=== PATIENT | male | born 1965 | race Caucasian/White ===

== ENCOUNTER 2017-11-24 19:48 | Emergency (ER) | payer BC ==
[2017-11-24 20:15] VITALS: BP 159/106; PULSE 91; RESP 22; TEMP 98.3
[2017-11-24] MEDS ORDERED: ORPHENADRINE 30 MG/ML 2 ML VIAL IM STA (20:35)
[2017-11-24] MEDS ORDERED: KETOROLAC 30 MG/ML 1 ML VIAL IM STA (20:35)
--- NOTE | 2017-11-24 20:52 | ED ---
Back Pain HPI - General Chief Complaint: Back Pain/Injury Stated Complaint: back pain Time Seen by Provider: 11/24/17 20:20 Source: patient, RN notes reviewed Mode of arrival: ambulatory Limitations: no limitations - History of Present Illness Initial Comments: This is a 52-year-old male who presents to the emergency department with chief complaint of back pain. Patient reports history of chronic back pain. He states that every 6 months he gets an ablation for a herniated disc that causes radiculopathy on the right side. Patient states that the past 3 ablations have been canceled. He states that over the past 2 weeks he's had worsening of left- sided back pain and is now experiencing tingling to the left thigh. Patient states that he takes Percocet and oxycodone at home. He states it has not been fully relieving the pain. He states that he does have an ablation scheduled for next Tuesday. Patient denies any saddle paresthesias or loss of bladder or bowel function. Denies IV drug use. Denies falls, injuries or trauma. Denies recent fevers or chills, chest pain or shortness of breath, abdominal pain, nausea or vomiting. - Related Data Previous Rx's Medication Instructions Recorded Cyclobenzaprine [Flexeril] 10 mg PO TID #15 tab 11/24/17 Allergies Allergy/AdvReac Type Severity Reaction Status Date / Time cephalexin [From Keflex] Allergy Anaphylaxis Verified 11/24/17 20:15 codeine Allergy Nausea & Verified 11/24/17 20:15 Vomiting phenytoin [From Dilantin] Allergy Hallucinati Verified 11/24/17 20:15 ons Review of Systems ROS Statement: Those systems with pertinent positive or pertinent negative responses have been documented in the HPI. ROS Other: All systems not noted in ROS Statement are negative. Past Medical History Past Medical History: Diabetes Mellitus, Hypertension Additional Past Medical History / Comment(s): back pain History of Any Multi-Drug Resistant Organisms: None Reported Past Surgical History: Hernia Repair Additional Past Surgical History / Comment(s): 2-fatty tissue tumors, cyst throat , vastectomy Past Psychological History: No Psychological Hx Reported Smoking Status: Never smoker Past Alcohol Use History: Rare Past Drug Use History: None Reported General Exam - General Exam Comments Initial Comments: General: Awake and alert, well-developed; in no apparent distress. Pleasant male lying comfortably on ED stretcher on his right side. HEENT: Head atraumatic, normocephalic. Pupils are equal, round and reactive to light. Extraocular movements intact. Oropharynx moist without erythema or exudate. Neck: Supple. Normal ROM. Cardiovascular: Regular rate and rhythm. No murmurs, rubs or gallops. Chest symmetrical. Pedal pulses are 2+ equal and palpable bilaterally. Respiratory: Lungs clear to auscultation bilaterally. No wheezes, rales or rhonchi. Normal respiratory effort with no use of accessory muscles. Musculoskeletal: Normal ROM, no tenderness bilateral upper and lower extremities. Skin: [place], warm and dry without rashes or lesions. Neurological: Alert and oriented x3. CN II-XII grossly intact. Speech is fluent and answers are appropriate. No focal neuro deficits. Psychiatric: Normal mood and affect. No overt signs of depression or anxiety noted. Limitations: no limitations Back exam: Present: normal inspection, full ROM, paraspinal tenderness (right and left lumbar). Absent: vertebral tenderness Course Vital Signs 11/24/17 20:10 Temperature 98.3 F Pulse Rate 91 Respiratory 22 Rate Blood Pressure 159/106 O2 Sat by Pulse 96 Oximetry Medical Decision Making - Medical Decision Making This is a 52-year-old male who presents to the emergency department with chief complaint of acute on chronic low back pain. Patient denies any falls, injuries or trauma. He is neurovascularly intact. There is tenderness on palpation of the left paraspinal muscles. Patient reports tingling to the left thigh. Denies saddle paresthesias or loss of bladder or bowel function. Patient takes Percocet and oxycodone at home. Recommended a short course of steroids, however patient declines. He will be given muscle relaxers. Also recommended ibuprofen 600 mg every 6 hours for the next 2-3 days. Given Toradol and Norflex while in the emergency department. His vital signs are stable and he is in no acute distress. He will be discharged home at this time. He is in agreement with plan and voices understanding. All questions were answered. Instructed patient to follow up with his upcoming ablation as scheduled. Disposition Clinical Impression: Acute low back pain, Lumbar radiculopathy Disposition: HOME SELF-CARE Condition: Good Instructions: Acute Low Back Pain (ED) Additional Instructions: May take ibuprofen 600 mg every 6 hours for the next 2-3 days. Please take medications as prescribed Please follow up with primary care provider within 1- 2 days. Return to emergency department if symptoms should worsen or any concerns arise. Prescriptions: Cyclobenzaprine [Flexeril] 10 mg PO TID #15 tab Is patient prescribed a controlled substance at d/c from ED?: No Referrals: None,Stated [Primary Care Provider] - 1-2 days Time of Disposition: 20:52
== END 2017-11-24 21:00 | disposition home or self-care (01) ==
LOC: EC 19:48
DX: M54.16 Radiculopathy, lumbar region (principal); Z88.1 Allergy status to other antibiotic agents; Z88.5 Allergy status to narcotic agent; Z88.8 Allergy status to other drugs, medicaments and biological substances; Z98.890 Other specified postprocedural states
CPT/HCPCS: 99283; 96372 ×2; J2360; J1885

== ENCOUNTER 2017-12-05 09:15 | Emergency (ER) | payer BC ==
[2017-12-05] MEDS ORDERED: HYDROmorphone 1 MG/ML 1 ML SYRINGE IM STA (09:51)
--- NOTE | 2017-12-05 09:54 | ED ---
Back Pain HPI - General Chief Complaint: Back Pain/Injury Stated Complaint: back pain Time Seen by Provider: 12/05/17 09:27 Source: patient, RN notes reviewed Limitations: no limitations - History of Present Illness Initial Comments: 52-year-old male presents emergency Department chief complaint of low back pain. Patient does admit that he is chronic back issues with lumbar area Symptoms on his right. Patient states over the last week or so he's had left leg symptoms. He states she's never had these issues in the past. Patient went for an ablation to his right side and states that his neck and told he needed some sort of imaging. Patient states he is not did not have any imaging. Patient denies any bowel bladder incontinence or retention. Denies any saddle anesthesias. Patient denies any abdominal pain. Patient states his pain and numbness rating down his left leg. Patient does take Percocet currently. - Related Data Home Medications Medication Instructions Recorded Confirmed Hydrochlorothiazide 25 mg PO DAILY 12/05/17 12/05/17 Lisinopril [Prinivil] 20 mg PO DAILY 12/05/17 12/05/17 Multivitamin [Men's Multi-Vitamin] 1 tab PO DAILY 12/05/17 12/05/17 oxyCODONE HCL/ACETAMINOPHEN 1 tab PO TID PRN 12/05/17 12/05/17 [Percocet 10-325 mg] Previous Rx's Medication Instructions Recorded predniSONE 50 mg PO DAILY #5 tab 12/05/17 Allergies Allergy/AdvReac Type Severity Reaction Status Date / Time cephalexin [From Keflex] Allergy Anaphylaxis Verified 12/05/17 09:59 codeine Allergy Nausea & Verified 12/05/17 09:59 Vomiting phenytoin [From Dilantin] Allergy Hallucinati Verified 12/05/17 09:59 ons Review of Systems ROS Statement: Those systems with pertinent positive or pertinent negative responses have been documented in the HPI. ROS Other: All systems not noted in ROS Statement are negative. Past Medical History Past Medical History: Diabetes Mellitus, Hypertension Additional Past Medical History / Comment(s): chronic back pain History of Any Multi-Drug Resistant Organisms: None Reported Past Surgical History: Hernia Repair Additional Past Surgical History / Comment(s): 2-fatty tissue tumors, cyst throat , vastectomy Past Psychological History: No Psychological Hx Reported Smoking Status: Never smoker Past Alcohol Use History: Rare Past Drug Use History: None Reported General Exam Limitations: no limitations General appearance: alert, in no apparent distress Head exam: Present: atraumatic, normocephalic, normal inspection Respiratory exam: Present: normal lung sounds bilaterally. Absent: respiratory distress, wheezes, rales, rhonchi, stridor Cardiovascular Exam: Present: regular rate, normal rhythm, normal heart sounds. Absent: systolic murmur, diastolic murmur, rubs, gallop, clicks GI/Abdominal exam: Present: soft, normal bowel sounds. Absent: distended, tenderness, guarding, rebound, rigid Extremities exam: Present: other (Bilateral lower extremity full range of motion neurovascular intact equal color equal warmth) Back exam: Present: normal inspection, full ROM (Pain with range of motion), tenderness (Mild left lower lumbar), paraspinal tenderness. Absent: vertebral tenderness Neurological exam: Present: reflexes normal. Absent: motor sensory deficit Skin exam: Present: warm, dry, intact, normal color. Absent: rash Course Vital Signs 12/05/17 09:21 Temperature 98.1 F Pulse Rate 88 Respiratory 20 Rate Blood Pressure 121/78 O2 Sat by Pulse 98 Oximetry Medical Decision Making - Medical Decision Making 52-year-old male presents emergency from for low back pain. Patient is lumbar radiculopathy secondary to disc herniation. Patient will be referred to Dr. Nolan. Return parameters discussed. Disposition Clinical Impression: Lumbar radiculopathy, Acute low back pain Disposition: TRANSFER TO PSYCH HOSP/UNIT Condition: Stable Instructions: Acute Low Back Pain (ED) Additional Instructions: Please return to the Emergency Department if symptoms worsen or any other concerns. Prescriptions: predniSONE 50 mg PO DAILY #5 tab Is patient prescribed a controlled substance at d/c from ED?: No Referrals: None,Stated [Primary Care Provider] - 1-2 days Juan Jose Coronado DO [Doctor of Osteopathic Medicine] - 1-2 days Alphonso Cohen MD [STAFF PHYSICIAN] - 1-2 days Time of Disposition: 11:06
--- NOTE | 2017-12-05 10:26 | CT ---
EXAMINATION TYPE: CT lumbar spine wo con DATE OF EXAM: 12/05/2017 10:19 AM COMPARISON: None HISTORY: Low back pain CT DLP: 1190 mGycm Automated exposure control for dose reduction was used. Unenhanced CT of the lumbar spine was performed. Bone and soft tissue window settings are submitted as well as coronal and sagittal reconstructions. Evaluation slightly suboptimal study due to patient' s large body habitus. 5 lumbar type vertebra identified. Lumbar spine shows satisfactory alignment without evidence of acut e fracture or dislocation. Vertebral body heights and disc space heights are fairly well-maintained. There are posterior spur disc complexes identified L4-L5 and L5-S1 level on sagittal images. Smaller posterior disc herniation is seen L3-L4 level on sagittal images. Review of axial images shows the T12-L1, L1-L2, and L2-L3 levels all to appear within normal limits. Axial images at the L3-L4 level show mild/moderate broad disc bulge mildly effacing anterior thecal s ac on axial image 47. Bilateral neural foramina are patent. Axial images at the L4-L5 level show broad disc bulge with prominent right paracentral calcified disc protrusion component effacing anterior thecal sac on axial image 58 and causing mild to moderate ori ateral neural foraminal narrowing. Axial images at L5-S1 level show mild facet degenerative changes bilaterally. There is central spur d isc complex but spinal canal is preserved. Bilateral neural foramina are patent. There is mild calcified plaque in visualized portion of common iliac arteries IMPRESSION: Multilevel degenerative changes most prominent L4-L5 level as detailed above.
[2017-12-05 11:10] VITALS: BP 136/96; PULSE 77; RESP 18; TEMP 97.8
== END 2017-12-05 11:18 | disposition home or self-care (01) ==
LOC: EC 09:15
DX: M51.16 Intervertebral disc disorders with radiculopathy, lumbar region (principal); I10 Essential (primary) hypertension; Z79.899 Other long term (current) drug therapy; Z88.1 Allergy status to other antibiotic agents; Z88.5 Allergy status to narcotic agent; Z88.8 Allergy status to other drugs, medicaments and biological substances
CPT/HCPCS: 99283; 96372; 72131; J1170

== ENCOUNTER 2021-09-04 08:52 | Day surgery (SDC) | payer OTHER ==
[2021-09-01 15:44] VITALS: BMI 37.3
[~2021-09-04 08:52] MED LIST: LACTATED RINGERS 1,000 ML IV SCH
[2021-09-04 09:13] VITALS: TEMP 97
[2021-09-04 09:29] LABS: Glucose,Whole Blood 152 mg/dL (70-110)
[2021-09-04] MEDS ORDERED: PROPOFOL 10 MG/ML 20 ML VIAL IV ONE (10:26)
--- NOTE | 2021-09-04 10:56 | P.PCN ---
Date of Procedure: 09/04/21 Procedure(s) Performed: BRIEF HISTORY: Patient is a 56-year-old pleasant white male scheduled for an elective colonoscopy as a part of evaluation of prior history of colon polyps. His last coloscopy was 6 years ago. PROCEDURE PERFORMED: Colonoscopy. PREOPERATIVE DIAGNOSIS: history of colon polyps. IV sedation per Anesthesia. PROCEDURE: After informed consent was obtained, the patient, was brought into the endoscopy unit. IV sedation was administered by Anesthesia under continuous monitoring. Digital rectal examination was normal. Initially the Olympus CF-160 flexible video colonoscope was then inserted in the rectum, gradually advanced into the cecum without any difficulty. Careful examination was performed as the scope was gradually being withdrawn. Ileocecal valve and the appendiceal orifice were visualized and appeared normal. Prep was excellent. Mucosa of the cecum, ascending colon, transverse colon, descending colon, sigmoid colon, and rectum appeared normal. Retroflexion was performed in the rectum and no lesions were seen. The patient tolerated the procedure well. IMPRESSION: Normal-appearing colon from rectum to cecum with no evidence of colorectal neoplasia. RECOMMENDATIONS: Findings of this examination were discussed with the patient .as well as his family. He was advised to have a repeat screening colonoscopy in 10 years.
[2021-09-04 11:30] VITALS: BP 114/69; PULSE 54; RESP 16
== END 2021-09-04 11:45 | disposition home or self-care (01) ==
LOC: ORWHC2ENDO 08:52
PROVIDERS: ATTEND Internal Medicine Gastroenterology
DX: Z12.11 Encounter for screening for malignant neoplasm of colon (principal); Z86.010 Personal history of colon polyps; I10 Essential (primary) hypertension; E11.9 Type 2 diabetes mellitus without complications; Z79.899 Other long term (current) drug therapy; Z88.3 Allergy status to other anti-infective agents; Z88.5 Allergy status to narcotic agent; Z88.8 Allergy status to other drugs, medicaments and biological substances; Z79.891 Long term (current) use of opiate analgesic; Z80.9 Family history of malignant neoplasm, unspecified
CPT/HCPCS: 45378; J2704

== ENCOUNTER 2022-01-14 17:28 | Emergency (ER) | payer OTHER ==
[2022-01-14 17:34] VITALS: BP 148/77; PULSE 77; RESP 16; TEMP 98.5
[2022-01-14] MEDS ORDERED: BACITRACIN OINT 1 EACH PACKET TOPICAL ONE (18:06)
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
== END 2022-01-14 18:45 | disposition home or self-care (01) ==
LOC: EC 17:28
DX: T25.222A Burn of second degree of left foot, initial encounter (principal); T31.0 Burns involving less than 10% of body surface; I10 Essential (primary) hypertension; Z88.1 Allergy status to other antibiotic agents; Z88.8 Allergy status to other drugs, medicaments and biological substances; X12.XXXA Contact with other hot fluids, initial encounter; Y92.89 Other specified places as the place of occurrence of the external cause
CPT/HCPCS: 99283

== ENCOUNTER 2022-08-31 18:43 | Emergency (ER) | payer BC, OTHER ==
[2022-08-31 19:29] VITALS: RESP 18
--- NOTE | 2022-08-31 19:57 | ED ---
Abdominal Pain HPI - General Chief Complaint: Abdominal Pain Stated Complaint: abd pain Time Seen by Provider: 08/31/22 19:55 Source: patient, RN notes reviewed Mode of arrival: ambulatory Limitations: no limitations - History of Present Illness Initial Comments: This is a 57-year-old male who presents to the emergency department for left upper quadrant pain and constipation. States that he takes narcotic pain medication daily due to chronic back pain and neuropathy. He usually takes this with Dulcolax or another stool softener. However, over the last 3 days, he has not had a bowel movement. He is still passing gas. He tried taking Dulcolax, Will aLAX, and Senokot with no relief. He feels like he is having increasing pain in his upper abdomen, as well as the left upper quadrant. The left upper quadrant pain feels similar to a prior rib fracture, however he is unsure how he would have caused a rib fracture. Reports associated nausea. Denies any history of bowel obstructions. Denies any fevers, chills, sore throat, cough, dyspnea, chest pain, palpitations, vomiting, diarrhea, back pain, or headaches. MD Complaint: abdominal pain - Related Data Home Medications Medication Instructions Recorded Confirmed Multivitamin [Men's Multi-Vitamin] 1 tab PO DAILY 12/05/17 09/04/21 hydroCHLOROthiazide 25 mg PO DAILY 12/05/17 09/04/21 lisinopriL [Prinivil] 20 mg PO DAILY 12/05/17 09/04/21 Cetirizine HCl [Zyrtec] 10 mg PO DAILY 09/01/21 09/04/21 Gabapentin [Neurontin] 800 mg PO TID 09/01/21 09/04/21 oxyCODONE-APAP 10-325MG [Percocet 1 tab PO BID-W/MEALS 09/01/21 09/04/21 10-325 mg] Previous Rx's Medication Instructions Recorded Bacitracin Zinc/Polymyxin B 1 applic TOPICAL Q4H #50 gm 01/14/22 [Bacitracin-Polymyxin Ointment] Ondansetron Odt [Zofran Odt] 4 mg PO Q8HR PRN #15 tab 09/01/22 Allergies Allergy/AdvReac Type Severity Reaction Status Date / Time cephalexin [From Keflex] Allergy Anaphylaxis Verified 08/31/22 19:29 codeine Allergy Nausea & Verified 08/31/22 19:29 Vomiting phenytoin [From Dilantin] Allergy Hallucinations Verified 08/31/22 19:29 , HAD ALLERGY A CHILD UNSURE OF SYMPTOMS Review of Systems ROS Statement: Those systems with pertinent positive or pertinent negative responses have been documented in the HPI. ROS Other: All systems not noted in ROS Statement are negative. Past Medical History Past Medical History: Hypertension Additional Past Medical History / Comment(s): chronic back pain, neuropathy History of Any Multi-Drug Resistant Organisms: None Reported Past Surgical History: Hernia Repair Additional Past Surgical History / Comment(s): 2-fatty tissue tumors, cyst throat , vastectomy Past Psychological History: No Psychological Hx Reported Smoking Status: Never smoker Past Alcohol Use History: Rare Past Drug Use History: Marijuana General Exam - General Exam Comments Initial Comments: Visual Physical Exam Vital signs reviewed General: Well-appearing, nontoxic, no acute distress. Head: Normocephalic, atraumatic Eyes: PERRLA, EOMI ENT: Airway patent Chest: Nonlabored breathing Skin: No visual rash, normal skin tone Neuro: Alert and oriented 3 Musculoskeletal: No gross abnormalities Limitations: no limitations General appearance: alert, in no apparent distress Head exam: Present: atraumatic, normocephalic, normal inspection Respiratory exam: Present: normal lung sounds bilaterally. Absent: respiratory distress, wheezes, rales, rhonchi, stridor Cardiovascular Exam: Present: regular rate, normal rhythm, normal heart sounds. Absent: systolic murmur, diastolic murmur, rubs, gallop, clicks GI/Abdominal exam: Present: soft, tenderness (upper abdomen and in the left lower rib cage), normal bowel sounds. Absent: distended Neurological exam: Present: alert, oriented X3, CN II-XII intact Psychiatric exam: Present: normal affect, normal mood Skin exam: Present: warm, dry, intact, normal color. Absent: rash Course Vital Signs 08/31/22 08/31/22 09/01/22 19:25 22:53 00:07 Temperature 98.5 F 97.5 F L Pulse Rate 66 55 L 52 L Respiratory 18 18 Rate Blood Pressure 160/84 122/77 117/67 O2 Sat by Pulse 99 98 98 Oximetry Medical Decision Making - Medical Decision Making This is a 49-year-old male who presents to the emergency department for abdominal pain. Was pt. sent in by a medical professional or institution? @ -No Did you speak to anyone other than the patient for history? @ -No Did you review nursing and triage notes? @ -Yes, and I agree, it is accurate with regards to the patient's symptoms. Were old charts reviewed? @ -No Differential Diagnosis? @ -Differential Abdominal Pain Men: Appendicitis, cholecystitis, diverticulosis, ischemic bowel, pancreatitis, hepatitis, UTI, gastroenteritis, AAA, incarcerated hernia, bowel obstruction, constipation, inflammatory bowel, hepatitis, peptic ulcer disease, splenic i nfarction, perforated viscus, testicular torsion, this is not meant to be an all-inclusive list EKG interpreted by me (3pts min.)? @ -EKG interpreted by me demonstrating the following: Sinus rhythm. Ventricular rate 63 beats per minute, [place] interval 122 ms, QRS duration 105 ms, QTC 404 ms. X-rays interpreted by me (1pt min.)? @ -Not obtained CT interpreted by me (1pt min.)? @ -Computed tomography scan of the abdomen and pelvis obtained. My interpretation identifies no evidence of bowel wall thickening or free air. U/S interpreted by me (1pt. min.)? @ -Not obtained What testing was considered but not performed? (CT, X-rays, U/S, labs)? Why? @ -None What meds were considered but not given? Why? @ -None Did you discuss the management of the patient with other professionals? @ -No Did you reconcile home meds? @ -No Was smoking cessation discussed for >3mins.? @ -No Was critical care preformed (if so, how long)? @ -No Were there social determinants of health that impacted care today? How? (H omelessness, low income, unemployed, alcoholism, drug addiction, transportation, low edu. Level, literacy, decrease access to med. care, penitentiary, rehab)? @ -No Was there de-escalation of care discussed even if they declined? (Discuss DNR or withdrawal of care, Hospice)? @ -No What co-morbidities impacted this encounter? (DM, HTN, Smoking, COPD, CAD, Cancer, CVA, Hep., AIDS, mental health diagnosis, sleep apnea, morbid obesity)? @ -Chronic back pain - on narcotics Was patient admitted / discharged? @ -Discharged. Lab work obtained and found to be nonactionable. Computed tomography scan of the abdomen and pelvis reveals no acute process. Toradol, Zofran, and IV fluids administered. Discussed with the patient that the cause of his pain is not entirely clear at this time. He will continue to take his pain medication as prescribed, however I advised that this will continue to make him constipated. Advised he take ibuprofen or another anti-inflammatory as well for further management of his pain. We also discussed [id number] lidocaine cream or patches for the pain over the lower left rib cage. Advised to continue with MiraLAX or another stool softener to help with his constipation. Prescription for Zofran provided as well for any additional nausea/vomiting. Instructed him to have close follow-up with his primary care provider as well for reevaluation. Undiagnosed new problem with uncertain prognosis? @ -None Drug Therapy requiring intensive monitoring for toxicity (Heparin, Nitro, Insulin, Cardizem)? @ -None Were any procedures done? @ -None Diagnosis/symptom? @ -Abdominal pain, left rib cage pain Acute, or Chronic, or Acute on Chronic? @ -Acute Uncomplicated (without systemic symptoms) or Complicated (systemic symptoms)? @ -Uncomplicated Side effects of treatment? @ -None Exacerbation, Progression, or Severe Exacerbation] @ -Not applicable Poses a threat to life or bodily function? @ -No Return precautions reviewed in depth, the patient is instructed to return to the emergency department with any new, worsening, or concerning symptoms. Patient verbalized understanding. This case was discussed in detail with the attending ED physician, Dr. Roy. Presentation, findings, and treatment plan discussed in detail as well. - Lab Data Result diagrams: 08/31/22 21:08/31/22 21:00 Lab Results 08/31/22 08/31/22 08/31/22 Range/Units 21:00 21:00 : WBC 7.5 (3.8-10.6) k/uL RBC 4.82 (4.30-5.90) m/uL Hgb 14.5 (13.0-17.5) gm/dL Hct 43.6 (39.0-53.0) % MCV 90.4 (80.0-100.0) fL MCH 30.1 (25.0-35.0) pg MCHC 33.3 (31.0-37.0) g/dL RDW 12.5 (11.5-15.5) % Plt Count 171 (150-450) k/uL MPV 9.8 Neutrophils % 58 % Lymphocytes % 23 % Monocytes % 8 % Eosinophils % 8 % Basophils % 0 % Neutrophils # 4.4 (1.3-7.7) k/uL Lymphocytes # 1.7 (1.0-4.8) k/uL Monocytes # 0.6 (0-1.0) k/uL Eosinophils # 0.6 (0-0.7) k/uL Basophils # 0.0 (0-0.2) k/uL Sodium 139 (137-145) mmol/L Potassium 4.1 (3.5-5.1) mmol/L Chloride 102 (98-107) mmol/L Carbon Dioxide 26 (22-30) mmol/L Anion Gap 11 mmol/L BUN 24 H (9-20) mg/dL Creatinine 0.74 (0.66-1.25) mg/dL Est GFR (CKD-EPI)AfAm >90 (>60 ml/min/1.73 sqM) Est GFR (CKD-EPI)NonAf >90 (>60 ml/min/1.73 sqM) Glucose 120 H (74-99) mg/dL Plasma Lactic Acid Juve 1.2 (0.7-2.0) mmol/L Calcium 9.6 (8.4-10.2) mg/dL Total Bilirubin 0.6 (0.2-1.3) mg/dL AST 28 (17-59) U/L ALT 25 (4-49) U/L Alkaline Phosphatase 76 (38-126) U/L Total Protein 7.8 (6.3-8.2) g/dL Albumin 4.5 (3.5-5.0) g/dL Amylase 105 (30-110) U/L Lipase 165 (23-300) U/L Urine Color Urine Appearance (Clear) Urine pH (5.0-8.0) Ur Specific [place] (1.001-1.035) Urine Protein (Negative) Urine Glucose (UA) (Negative) Urine Ketones (Negative) Urine Blood (Negative) Urine Nitrite (Negative) Urine Bilirubin (Negative) Urine Urobilinogen (<2.0) mg/dL Ur Leukocyte Esterase (Negative) 07/11/23 Range/Units 21:23 WBC (3.8-10.6) k/uL RBC (4.30-5.90) m/uL Hgb (13.0-17.5) gm/dL Hct (39.0-53.0) % MCV (80.0-100.0) fL MCH (25.0-35.0) pg MCHC (31.0-37.0) g/dL RDW (11.5-15.5) % Plt Count (150-450) k/uL MPV Neutrophils % % Lymphocytes % % Monocytes % % Eosinophils % % Basophils % % Neutrophils # (1.3-7.7) k/uL Lymphocytes # (1.0-4.8) k/uL Monocytes # (0-1.0) k/uL Eosinophils # (0-0.7) k/uL Basophils # (0-0.2) k/uL Sodium (137-145) mmol/L Potassium (3.5-5.1) mmol/L Chloride (98-107) mmol/L Carbon Dioxide (22-30) mmol/L Anion Gap mmol/L BUN (9-20) mg/dL Creatinine (0.66-1.25) mg/dL Est GFR (CKD-EPI)AfAm (>60 ml/min/1.73 sqM) Est GFR (CKD-EPI)NonAf (>60 ml/min/1.73 sqM) Glucose (74-99) mg/dL Plasma Lactic Acid Juve (0.7-2.0) mmol/L Calcium (8.4-10.2) mg/dL Total Bilirubin (0.2-1.3) mg/dL AST (17-59) U/L ALT (4-49) U/L Alkaline Phosphatase (38-126) U/L Total Protein (6.3-8.2) g/dL Albumin (3.5-5.0) g/dL Amylase (30-110) U/L Lipase (23-300) U/L Urine Color Yellow Urine Appearance Clear (Clear) Urine pH 7.5 (5.0-8.0) Ur Specific [place] 1.027 (1.001-1.035) Urine Protein Trace H (Negative) Urine Glucose (UA) Negative (Negative) Urine Ketones Negative (Negative) Urine Blood Negative (Negative) Urine Nitrite Negative (Negative) Urine Bilirubin Negative (Negative) Urine Urobilinogen 3.0 (<2.0) mg/dL Ur Leukocyte Esterase Negative (Negative) - Radiology Data Radiology results: report reviewed, image reviewed Disposition Clinical Impression: Abdominal pain, Rib pain on left side Disposition: HOME SELF-CARE Instructions (If sedation given, give patient instructions): Abdominal Pain (ED) Additional Instructions: Return to the emergency department with any new, worsening, or concerning symptoms. Continue to take your pain medications and use MiraLAX or another stool softener to help with the constipation. You can try using lidocaine patches or cream on the rib cage to see if that offers any benefit. Follow up with your primary care provider in 1-2 days. Prescriptions: Ondansetron Odt [Zofran Odt] 4 mg PO Q8HR PRN #15 tab PRN Reason: Nausea And Vomiting Is patient prescribed a controlled substance at d/c from ED?: No Referrals: Lore Bray DO [Primary Care Provider] - 1-2 days
[2022-08-31] MEDS ORDERED: KETOROLAC 15 MG/ML 1 ML VIAL IVP STA (20:42)
[2022-08-31] MEDS ORDERED: SODIUM CHLORIDE 0.9% 1,000 ML IV STA (20:42)
[2022-08-31] MEDS ORDERED: ONDANSETRON 4 MG/2 ML VIAL IVP STA (20:42)
[2022-08-31 21:22] LABS: Appearance,Urine Clear (Clear); Bilirubin,Urine Negative (Negative); Blood,Urine Negative (Negative); Color,Urine Yellow; Glucose,Urine (UA) Negative (Negative); Ketones,Urine Negative (Negative); Leukocyte Esterase,Urine Negative (Negative); Nitrite,Urine Negative (Negative); PH, Urine 7.5 (5.0-8.0); Protein,Urine Trace (Negative); Specific Gravity,Urine 1.027 (1.001-1.035)
[2022-08-31 21:23] LABS: Basophils % (A) 0 %; Eosinophils # (A) 0.6 k/uL (0-0.7); Eosinophils % (A) 8 %; HCT 43.6 % (39.0-53.0); HGB 14.5 gm/dL (13.0-17.5); Lymphocytes # (A) 1.7 k/uL (1.0-4.8); Lymphocytes % (A) 23 %; MCH 30.1 pg (25.0-35.0); MCHC 33.3 g/dL (31.0-37.0); MCV 90.4 fL (80.0-100.0); Mean Platelet Volume 9.8; Monocytes # (A) 0.6 k/uL (0-1.0); Monocytes % (A) 8 %; Neutrophils # (A) 4.4 k/uL (1.3-7.7); Neutrophils % (A) 58 %; Platelet Count 171 k/uL (150-450); RBC 4.82 m/uL (4.30-5.90); RDW 12.5 % (11.5-15.5); WBC 7.5 k/uL (3.8-10.6)
[2022-08-31 21:38] LABS: ALT 25 U/L (4-49); AST 28 U/L (17-59); African American GFR (CKD) >90 (>60 ml/min/1.73 sqM); Albumin 4.5 g/dL (3.5-5.0); Alkaline Phosphatase 76 U/L (38-126); Amylase 105 U/L (30-110); Anion Gap 11 mmol/L; Blood Urea Nitrogen 24 mg/dL (9-20); Calcium 9.6 mg/dL (8.4-10.2); Carbon Dioxide 26 mmol/L (22-30); Chloride 102 mmol/L (98-107); Glucose 120 mg/dL (74-99); Lipase 165 U/L (23-300); Non-African American GFR(CKD) >90 (>60 ml/min/1.73 sqM); Potassium 4.1 mmol/L (3.5-5.1); Sodium 139 mmol/L (137-145); Total Bilirubin 0.6 mg/dL (0.2-1.3); Total Protein 7.8 g/dL (6.3-8.2)
[2022-09-01 00:08] VITALS: BP 117/67; PULSE 52; TEMP 97.5
--- NOTE | 2022-09-01 00:12 | CT ---
EXAM: CT Abdomen and Pelvis With Intravenous Contrast CLINICAL HISTORY: ITS.REASON CT Reason: LUQ and epigastric pain TECHNIQUE: Axial computed tomography images of the abdomen and pelvis with intravenous contrast. CTDI is 31.7 mGy and DLP is 1523 mGy-cm. This CT exam was performed using one or more of the following dose reduction techniques: automated exposure control, adjustment of the mA and/or kV according to patient size, and/or use of iterative reconstruction technique. COMPARISON: No relevant prior studies available. FINDINGS: ABDOMEN: Liver: Unremarkable. Gallbladder and bile ducts: Unremarkable. Pancreas: Unremarkable. Spleen: Unremarkable. Adrenals: Unremarkable. Kidneys and ureters: Unremarkable. No obstructing stones. No hydronephrosis. Stomach and bowel: Unremarkable. PELVIS: Appendix: No findings to suggest acute appendicitis. Bladder: Unremarkable. Reproductive: Prostate enlarged measuring 6 cm. ABDOMEN and PELVIS: Intraperitoneal space: Unremarkable. No free air. No significant fluid collection. Bones/joints: No acute fracture. Soft tissues: Postsurgical changes along the ventral abdominal wall. Vasculature: Unremarkable. Lymph nodes: Unremarkable. IMPRESSION: 1. No acute abnormality. 2. Prostatomegaly.
== END 2022-09-01 00:44 | disposition home or self-care (01) ==
LOC: EC 18:43
DX: R10.12 Left upper quadrant pain (principal); R07.81 Pleurodynia; I10 Essential (primary) hypertension; F12.90 Cannabis use, unspecified, uncomplicated; Z88.1 Allergy status to other antibiotic agents; Z88.8 Allergy status to other drugs, medicaments and biological substances; Z88.5 Allergy status to narcotic agent; Z79.899 Other long term (current) drug therapy
CPT/HCPCS: 36415; 93005; 80053; 82150; 83605; 83690; 85025; 81003; 74177; 99284; 96374; 96375; 96361 ×2; J2405; J1885; Q9967